=== PATIENT | female | born 1980 | race Caucasian/White ===

== ENCOUNTER 2016-06-17 05:09 | Emergency (ER) | payer OTHER ==
--- NOTE | ~2016-06-17 | US85 ---
[facility] A Service of [facility] / [facility] RADIOLOGY TEXT RESULTS PATIENT: HARLAN IYER LOCATION: [facility] : 76 UNIT #: [id number] AGE: [address]: Darrius Leos MD SEX: F ORDER DR: [id number] [place], [place] [address] [id number] MR#: [id number] Acc #: [id number] NAME: HARLAN IYER : 1980 SEX: F STUDY DATE/TIME: 06/17/2016 7:21 UNIT: [facility] ROOM: STUDY DESCRIPTION: [facility] Attending Physician: Darrius Leos M.D. Ordering Physician: Leonel Díaz M.D. Primary Care Physician: No Primary Care Physician MEDICAL IMAGING REPORT This report is preliminary unless electronic signature is present EXAM Right lower extremity venous duplex, 06/17/2016. HISTORY Right lower extremity pain and swelling for 2 days. Evaluate for deep venous thrombosis. TECHNIQUE Venous ultrasound examination of the right lower extremity was performed using grayscale, spectral Doppler and color flow Doppler imaging. FINDINGS The examination is negative. There is no evidence of right lower extremity deep venous thrombus from the groin to the lower calf. Visualized greater saphenous vein is also patent. IMPRESSION Negative examination. No evidence of right lower extremity deep venous thrombosis. Dictated by... Zacarias Crabtree M.D. THIS IS AN ELECTRONICALLY VERIFIED REPORT Zacarias Crabtree M.D. at 06/18/2016 2:24 PM DIO/ari TD: 06/17/2016 11:46 JOB #: [id number] MEDICAL IMAGING REPORT [facility] A Service [facility] RADIOLOGY TEXT RESULTS PATIENT: HARLAN IYER LOCATION: [facility] : 76 UNIT #: [id number] AGE: [address]: Darrius Leos MD SEX: F ORDER DR: COPY
== END 2016-06-17 08:38 | disposition home or self-care (01) ==
LOC: CED 05:09
DX: M79.662 Pain in left lower leg (principal); J45.909 Unspecified asthma, uncomplicated; F17.200 Nicotine dependence, unspecified, uncomplicated; Z88.0 Allergy status to penicillin; Z88.1 Allergy status to other antibiotic agents; Z91.040 Latex allergy status
CPT/HCPCS: 93971; 99284

== ENCOUNTER 2016-08-09 23:58 | Emergency (ER) | payer OTHER ==
--- NOTE | ~2016-08-09 | EKG ---
PATIENT: HARLAN IYER UNIT #: [id number] Ventricular Rate: 81 BPM Atrial Rate: 81 BPM P-R Interval: 136 ms QRS Duration: 76 ms Q-T Interval: 378 ms QTC Calculation(Bezet): 439 ms P Hudson: 27 degrees Calculated R Hudson: 25 degrees Calculated T Hudson: 41 degrees Diagnosis Line: Normal sinus rhythm Diagnosis Line: Normal ECG Diagnosis Line: No previous ECGs available Diagnosis Line: Confirmed by HEMAL KING MD ([id number]) on 08/10/2016 Diagnosis Line: 10:47:20 PM INTERPRETING MD: CHRISTINE LAM
[2016-08-09 22:54] LABS: BASOPHIL# 0.1 X10e3 (0-0.3); BASOPHIL% 0.8 % (0-2.5); EOSINOPHIL# 0.1 X10e3 (0-0.7); EOSINOPHIL% 1.1 % (0.0-7.0); HEMATOCRIT 44.7 % (35.0-45.0); HEMOGLOBIN 14.2 gm/dL (12.0-16.0); LYMPHOCYTE# 2.9 X10e3 (1.0-3.5); MEAN CELL VOLUME 80.9 FL (83-96); MEAN CORPUSCULAR HEMOGLOBIN 25.8 PG (28-34); MEAN CORPUSCULAR HGB CONC 31.9 g/dL (30-36); MEAN PLATELET VOLUME 9.2 FL (6.5-11.5); MONOCYTE# 0.7 X10e3 (0-1.0); MONOCYTE% 5.3 % (3.0-12.0); NEUTROPHIL# 8.7 X10e3 (1.5-7.1); NEUTROPHIL% 69.8 % (40-75); PLATELET COUNT 282 X10e3 (140-420); RED BLOOD COUNT 5.52 X10e (3.90-5.30); RED CELL DISTRIBUTION WIDTH 15.8 % (11.0-15.5); WHITE BLOOD COUNT 12.4 X10e3 (4.0-10.5)
[2016-08-09 22:57] LABS: DIFF IND NO
[2016-08-09 23:18] LABS: ALBUMIN SERUM 3.6 g/dL (3.5-5.0); ALKALINE PHOSPHATASE 84 U/L (32-92); ALT (SGPT) 18 U/L (10-40); AST (SGOT) 17 U/L (10-42); BILIRUBIN,TOTAL 0.4 mg/dL (0.2-2.0); BLOOD UREA NITROGEN 12 mg/dL (9-23); CALCIUM SERUM 8.9 mg/dL (8.4-10.2); CARBON DIOXIDE 26 mmol/L (22-31); CHLORIDE 103 mmol/L (100-111); CREATININE SERUM 0.8 mg/dL (0.6-1.4); GLOM FILT RATE Estimated 93.6 mL/min (>60); GLUCOSE FASTING 107 mg/dL (70-110); POTASSIUM 3.9 mmol/L (3.5-5.1); PROTEIN TOTAL SERUM 7.1 g/dL (6.0-8.3); SODIUM 139 mmol/L (135-145)
[2016-08-09 23:22] LABS: BILIRUBIN, DIRECT <0.1 mg/dL (0.0-0.2); BILIRUBIN,INDIRECT 0.3 mg/dL (0.0-0.9)
[2016-08-10 01:22] LABS: URINE SOURCE CLEAN CATCH
[2016-08-10 01:29] LABS: URINE APPEARANCE CLEAR; URINE BILIRUBIN NEG (NEG); URINE BLOOD NEG (NEG); URINE COLOR YELLOW; URINE GLUCOSE NEG (NEG); URINE KETONE NEG (NEG); URINE LEUKOCYTE ESTERASE NEG (NEG); URINE NITRATE NEG (NEG); URINE PROTEIN NEG (NEG); URINE SPECIFIC GRAVITY 1.021 (1.003-1.035)
[2016-08-10 01:33] LABS: CULTURE INDICATED? NO
== END 2016-08-10 02:14 | disposition home or self-care (01) ==
LOC: CED 23:58
PROVIDERS: Emergency Medicine
DX: R06.00 Dyspnea, unspecified (principal); F17.200 Nicotine dependence, unspecified, uncomplicated
CPT/HCPCS: 80048; 80076; 81003; 82947; 84703; 85025; 93005; 99283

== ENCOUNTER 2016-12-19 02:57 | Emergency (ER) | payer OTHER ==
[~2016-12-19] VITALS: Ht 170.2 cm; Wt 127.9 kg
[2016-12-19 04:25] LABS: BASOPHIL# 0.1 X10e3 (0-0.3); BASOPHIL% 0.8 % (0-2.5); EOSINOPHIL# 0.1 X10e3 (0-0.7); HEMATOCRIT 43.5 % (35.0-45.0); LYMPHOCYTE# 2.5 X10e3 (1.0-3.5); LYMPHOCYTE% 27.2 % (17.0-45.0); MEAN CELL VOLUME 81.5 FL (83-96); MEAN CORPUSCULAR HEMOGLOBIN 26.2 PG (28-34); MEAN CORPUSCULAR HGB CONC 32.2 g/dL (30-36); MEAN PLATELET VOLUME 9.1 FL (6.5-11.5); MONOCYTE# 0.6 X10e3 (0-1.0); MONOCYTE% 6.3 % (3.0-12.0); NEUTROPHIL# 5.9 X10e3 (1.5-7.1); NEUTROPHIL% 64.7 % (40-75); PLATELET COUNT 272 X10e3 (140-420); RED BLOOD COUNT 5.33 X10e (3.90-5.30); RED CELL DISTRIBUTION WIDTH 17.1 % (11.0-15.5); WHITE BLOOD COUNT 9.1 X10e3 (4.0-10.5)
[2016-12-19 04:27] LABS: DIFF IND NO
== END 2016-12-19 07:06 | disposition home or self-care (01) ==
LOC: CED 02:57
PROVIDERS: Emergency Medicine
DX: O20.0 Threatened abortion (principal); O99.511 Diseases of the respiratory system complicating pregnancy, first trimester; J45.909 Unspecified asthma, uncomplicated; O99.281 Endocrine, nutritional and metabolic diseases complicating pregnancy, first trimester; E03.9 Hypothyroidism, unspecified; O99.331 Smoking (tobacco) complicating pregnancy, first trimester; F17.210 Nicotine dependence, cigarettes, uncomplicated; R73.9 Hyperglycemia, unspecified; O99.89 Other specified diseases and conditions complicating pregnancy, childbirth and the puerperium; Z88.0 Allergy status to penicillin; Z88.1 Allergy status to other antibiotic agents; Z88.5 Allergy status to narcotic agent; Z91.040 Latex allergy status; Z3A.09 9 weeks gestation of pregnancy
CPT/HCPCS: 36415; 85025; 86850; 86900; 86901; 88305; 96360; 99284